=== PATIENT | male | born 1985 | race African-American/Black ===

== ENCOUNTER 2020-09-19 18:35 | Emergency (ER) | END 2020-09-19 19:41 | LOC: MADERS 18:35 | DX: Z53.21 Procedure and treatment not carried out due to patient leaving prior to being seen by health care provider (principal) ==

== ENCOUNTER 2020-09-19 22:12 | Emergency (ER) | END 2020-09-19 22:50 | LOC: MADERS 22:12 | DX: Z02.83 Encounter for blood-alcohol and blood-drug test (principal); I10 Essential (primary) hypertension; F17.210 Nicotine dependence, cigarettes, uncomplicated | CPT/HCPCS: 99283 ==

== ENCOUNTER 2020-10-12 12:45 | Emergency (ER) | END 2020-10-12 13:30 | disposition home or self-care (01) | LOC: MADERS 12:45 | DX: B86 Scabies (principal); I10 Essential (primary) hypertension; F17.210 Nicotine dependence, cigarettes, uncomplicated | CPT/HCPCS: 99282 ==